=== PATIENT | female | born 2000 | race Caucasian/White ===

== ENCOUNTER 2020-06-30 08:35 | Emergency (ER) | payer OTHER, BC ==
[2020-06-30 08:52] VITALS: BP 126/71; PULSE 78
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
== END 2020-06-30 10:35 | disposition home or self-care (01) ==
LOC: JP.ED 08:35
DX: S61.412A Laceration without foreign body of left hand, initial encounter (principal)
CPT/HCPCS: 12001; 73130-26-LT; 73130-LT; 73562-26-RT; 73562-RT; 99282; 99283-25

== ENCOUNTER 2021-11-05 13:50 | Emergency (ER) | payer BC, MEDICAID ==
[2021-11-05 14:12] VITALS: BP 117/67; PULSE 98
[2021-11-05 15:18] LABS: CORONAVIRUS COVID-19 NAA POSITIVE (NEGATIVE)
--- NOTE | 2021-11-05 15:41 | EDM.PDOC ---
ED HPI GENERAL MEDICAL PROBLEM - General Chief Complaint: Abdominal Pain Stated Complaint: 14 WEEKS VOMITING & FEVER Time Seen by Provider: 11/05/21 15:19 Source of Information: Reports: Patient, RN Notes Reviewed History Limitations: Reports: No Limitations - History of Present Illness INITIAL COMMENTS - FREE TEXT/NARRATIVE: 21-year-old female presents emergency department day complaint of nausea and vomiting, she is 14 weeks intrauterine states he has had problems with nausea and vomiting her whole she does have a prescription for Zofran at home but has not filled it as of yet. 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 Denies: Abdominal Pain ED EXAM - Physical Exam Exam: See Below Exam Limited By: No Limitations General Appearance: Alert, WD/WN, No Apparent Distress Respiratory/Chest: No Respiratory Distress, Lungs Clear, Normal Breath Sounds, No Accessory Muscle Use, Chest Non-Tender Cardiovascular: Regular Rate, Rhythm, No Murmur GI/Abdominal Exam: Soft, Non-Tender Heart Tones: Present Heart Tones per Min: 168 Movement: Not Appreciated Course - Vital Signs Last Recorded V/S: Last Vital Signs Temp 98.1 F 11/05/21 14:36 Pulse 98 11/05/21 14:36 Resp 16 11/05/21 14:36 BP 117/67 11/05/21 14:36 Pulse Ox 99 11/05/21 14:36 - Orders/Labs/Meds Orders: Active Orders 24 hr Category Date Time Status Isolation [COMM] Stat Oth 11/05/21 14:00 Ordered Labs: Laboratory Tests 11/05/21 Range/Units 14:20 Influenza Type A RNA Negative (NEGATIVE) RSV RNA (INAAT) Negative (NEGATIVE) Influenza Type B RNA Negative (NEGATIVE) SARS-CoV-2 RNA (SEGUN) Positive H (NEGATIVE) Departure - Departure Time of Disposition: 15:39 Disposition: Home, Self-Care 01 Condition: Fair Clinical Impression: COVID-19 - Discharge Information Instructions: 10 Things You Can Do to Manage Your COVID-19 Symptoms at Home - [facility] (05/25/2021) Referrals: Keya Lauren MD [Primary Care Provider] - Additional Instructions: Continue taking your vitamins, recommend start the Zofran as needed for nausea and vomiting symptoms, please contact your OB provider to discuss monoclonal antibody therapy if this something you are interested in you have 10 days to get it done, call or return to the emergency department worsening of symptoms recommend self quarantine 10 days Sepsis Event Note (ED) - Evaluation Sepsis Screening Result: No Definite Risk - Focused Exam Vital Signs: Vital Signs Temp Pulse Resp BP Pulse Ox 11/05/21 14:36 98.1 F 98 16 117/67 99 11/05/21 14:11 98.1 F 98 16 117/67 99 - My Orders Last 24 Hours: My Active Orders 11/05/21 14:00 Isolation [COMM] Stat - Assessment/Plan Last 24 Hours: My Active Orders 11/05/21 14:00 Isolation [COMM] Stat Plan: Assessment Acuity = acute Site and laterality = viral syndrome complicated and 14 weeks intrauterine with nausea and vomiting Etiology = COVID-19 Manifestations = none Location of injury = Home Lab values = positive COVID-19, negative influenza negative RSV Plan I did discuss with her the possibility of monoclonal antibody therapy she is can discuss this with her OB provider, this would be day 1 of symptoms This note was dictated using [employer] voice recognition software please call with any questions on syntax or grammar.
== END 2021-11-05 16:07 | disposition home or self-care (01) ==
LOC: JP.ED 13:50
DX: O98.512 Other viral diseases complicating pregnancy, second trimester (principal); U07.1 COVID-19; Z3A.14 14 weeks gestation of pregnancy
CPT/HCPCS: 0241U; 99284

== ENCOUNTER 2021-11-15 18:13 | Emergency (ER) | payer MEDICAID ==
[2021-11-15 18:24] VITALS: BP 106/60; PULSE 83
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
== END 2021-11-15 18:42 | disposition home or self-care (01) ==
LOC: JP.ED 18:13
DX: O99.891 Other specified diseases and conditions complicating pregnancy (principal); R10.33 Periumbilical pain; Z3A.15 15 weeks gestation of pregnancy
CPT/HCPCS: 99283

== ENCOUNTER 2024-05-15 14:36 | Emergency (ER) | payer MEDICAID ==
[2024-05-15] MEDS ORDERED: Acetaminophen/oxyCODONE 325-5 MG Tab PO ONE (14:47)
[2024-05-15] MEDS ORDERED: cefTRIAXone 1 GM Vial IM ONE (14:48)
[2024-05-15] MEDS ORDERED: cefTRIAXone 1 GM, Lidocaine 1% 2.1 ML IM ONE (15:00)
[2024-05-15 15:31] VITALS: BP 125/55; PULSE 77
[2024-05-15 16:55] LABS: BASOPHILS ABSOLUTE AUTO 0.04 K/uL (0.00-0.10); BASOPHILS PERCENT AUTO 0.3 % (0.1-1.3); EOSINOPHILS ABSOLUTE AUTO 0.09 K/uL (0.00-0.40); EOSINOPHILS PERCENT AUTO 0.7 % (0.0-5.4); HEMATOCRIT 39.8 % (34.3-46.0); HEMOGLOBIN 13.3 g/dL (11.2-15.5); IMMATURE GRAN ABSOLUTE AUTO 0.04 K/uL (0.00-0.23); IMMATURE GRAN PERCENT AUTO 0.3 % (0.0-0.7); LYMPHOCYTES ABSOLUTE AUTO 3.19 K/uL (0.8-3.3); MEAN CORPUSCULAR HEMOGLOBIN 26.5 pg (31.6-35.5); MEAN CORPUSCULAR HGB CONC 33.4 g/dL (31.6-35.5); MEAN CORPUSCULAR VOLUME 79.3 fL (81.4-99.0); MONOCYTES ABSOLUTE AUTO 0.76 K/uL (0.20-0.90); MONOCYTES PERCENT AUTO 6.2 % (3.3-12.6); NEUTROPHILS ABSOLUTE AUTO 8.14 K/uL (1.0-7.6); NEUTROPHILS PERCENT AUTO 66.5 % (40.0-78.1); PLATELET COUNT,PLT 279 K/uL (130-375); RED BLOOD CELL COUNT 5.02 M/uL (3.77-5.24); WHITE BLOOD CELL COUNT,WBC 12.3 K/uL (3.2-11.0)
[2024-05-15 17:09] LABS: CALCIUM 9.2 mg/dL (8.5-10.1); CREATININE 0.7 mg/dL (0.6-1.0); EST CRCL DRUG DOSING (CG) 125.07 mL/min; POTASSIUM,K 3.6 mmol/L (3.6-5.2)
[2024-05-15 17:24] LABS: ANION GAP 11.6 mmol/L (5.0-14.0)
== END 2024-05-15 18:21 | disposition home or self-care (01) ==
LOC: JP.ED 14:36
DX: O02.1 Missed abortion (principal); Z86.16 Personal history of COVID-19; Z79.899 Other long term (current) drug therapy; Z3A.08 8 weeks gestation of pregnancy
CPT/HCPCS: 36415; 80048; 84702; 85025; 99284